=== PATIENT | female | born 2000 | race Hispanic/Latino ===

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

== ENCOUNTER 2022-10-01 23:32 | Emergency (ER) | payer BC ==
[~2022-10-01] VITALS: Ht 147.3 cm; Wt 58.0 kg
[~2022-10-01 23:32] MED LIST changes: +FLEXERIL5 M1 PO; +IBUPROFEN600 MG PO
[2022-10-02 00:17] VITALS: BP 106/62
[2022-10-02 00:21] LABS: BASO% 0.2 % (0-3); EOS% 3.4 % (0-8); HEMATOCRIT 31.9 % (37.0-47.0); HEMOGLOBIN 10.8 g/dl (12.0-16.0); IMMATURE GRANULOCYTES 0.1 % (0.0-5.0); LYMPH% 21.1 % (15-41); MEAN CELL VOLUME 85.1 fL CALC (80.0-100.0); MEAN CORPUSCULAR HGB 28.8 pG CALC (26.0-32.0); MEAN CORPUSCULAR HGB CONC 33.9 g/dL CAL (32.0-36.0); MONO% 7.9 % (2-13); NEUT# 5.72 thou/uL (2.00-7.15); NEUT% 67.3 % (42-76); RED BLOOD COUNT 3.75 mill/uL (4.20-5.60)
[2022-10-02 00:22] LABS: URINE BILIRUBIN - DIPSTICK NEGATIVE (NEGATIVE); URINE BLOOD DIPSTICK NEGATIVE (NEGATIVE); URINE COLOR YELLOW; URINE GLUCOSE - DIPSTICK NEGATIVE (NEGATIVE); URINE KETONE NEGATIVE (NEGATIVE); URINE LEUK ESTERASE TRACE (NEGATIVE); URINE PROTEIN - DIPSTICK NEGATIVE (NEG-TRACE); URINE UROBILINOGEN - DIPSTICK 0.2 E.U./dL (0.2)
[2022-10-02 00:25] LABS: URINE NITRITE - DIPSTICK NEGATIVE (Negative)
[2022-10-02 00:30] VITALS: BP 123/83
[2022-10-02 00:36] LABS: ALKALINE PHOSPHATASE 88 u/l (38-126); ANION GAP 8 (6-22 (CALC)); BUN 4 mg/dL (7-17); BUN/CREATININE RATIO 10 (12-20 (CALC)); CARBON DIOXIDE 24 mmol/l (22-30); CHLORIDE 106 mmol/l (95-108); CREATININE 0.4 mg/dL (0.5-1.0); GFR FOR AFR.AMER. > 60 ML/MIN (>=60 (CALC)); GFR OTHER RACES > 60 ML/MIN (>=60 (CALC)); LIPASE 95 u/l (23-300); SGOT/AST 23 u/l (14-36); SODIUM 135 mmol/l (137-146); TOTAL PROTEIN 7.2 g/dL (6.3-8.2)
[2022-10-02 00:45] VITALS: BP 124/76
[2022-10-02] MEDS ORDERED: PEPCID40 MG PO (00:59)
[2022-10-02 01:00] VITALS: BP 104/62
[2022-10-02] MEDS ORDERED: ONDANSETRON4 MG PO (01:04)
[2022-10-02 01:15] VITALS: BP 109/68
[2022-10-02 01:23] VITALS: BP 109/68
== END 2022-10-02 01:22 | disposition home or self-care (01) | DRG 833 ==
LOC: ED 23:32
PROVIDERS: Family Medicine
DX: O99.612 Diseases of the digestive system complicating pregnancy, second trimester (principal); R10.9 Unspecified abdominal pain; K29.70 Gastritis, unspecified, without bleeding
CPT/HCPCS: S0164